=== PATIENT | female | born 1980 | race Caucasian/White ===

== ENCOUNTER 2018-10-02 16:09 | Emergency (ER) | payer OTHER ==
[~2018-10-02] VITALS: Ht 175.3 cm; Wt 104.3 kg
[2018-10-02 16:47] LABS: Basophils # (auto) 0.1 uL; Basophils % (auto) 0.7 % (0.0-2.0); Eosinophils # (auto) 0.2 uL; Lymphocytes # (auto) 2.5 uL; Monocytes # (auto) 0.7 uL; White Blood Cell 10.7 10^3/uL (4.4-10.8)
[2018-10-02 16:49] LABS: Eosinophils % (auto) 2.1 % (0.0-7.0); Hematocrit 38.6 % (36.0-46.0); Hemoglobin 12.5 g/dL (12.2-16.2); Lymphocytes % (auto) 23.1 % (10.0-50.0); Mean Corpuscular Hemoglobin 25.3 pg (28.0-32.0); Mean Corpuscular Hgb Conc. 32.5 g/dL (32.0-36.0); Mean Corpuscular Volume 77.7 fL (80.0-100.0); Monocytes % (auto) 6.6 % (0.0-12.0); Neutrophils # (auto) 7.3 uL; Neutrophils % (auto) 67.5 % (37.0-80.0); Platelet Count (auto) 369 10^3/uL (140-450); Red Blood Cells 4.96 10^6/uL (4.0-5.20); Red Cell Distribution Width 16.4 % (11.8-14.3)
[2018-10-02] MEDS ORDERED: SODIUM CHLORIDE 0.9% 1,000 ML IVB ONE (16:50)
[2018-10-02 16:54] LABS: Alanine Aminotransferase 20 U/L (13-56); Anion Gap 9 (5-15); Aspartate Aminotransferase 17 U/L (15-37); BUN/Creatinine Ratio 14.8; Blood Alcohol < 3.0 mg/dL (0-5); Blood Urea Nitrogen 16 mg/dL (7-18); Calcium 8.8 mg/dL (8.5-10.1); Carbon Dioxide 21 mmol/L (21-32); Chloride 115 mmol/L (98-107); GFR African American 73 mL/min; GFR Non-African American 60 mL/min; Glucose 97 mg/dL (74-106); Potassium 3.3 mmol/L (3.5-5.1); Sodium 145 mmol/L (136-145)
[2018-10-02 16:56] LABS: Alkaline Phosphatase 77 U/L (45-117); Bilirubin, Total 0.6 mg/dL (0.2-1.0); Total Protein 7.4 g/dL (6.4-8.2)
[2018-10-02 16:57] LABS: Acetaminophen < 2.0 ug/mL (10-30); Salicylate < 1.7 mg/dL (2.8-20.0)
[2018-10-02] MEDS ORDERED: POTASSIUM CHL 20 Meq TABLET PO ONE (19:15)
[2018-10-02 20:58] LABS: Urine Bacteria FEW /hpf (None Seen); Urine Blood Negative /uL (Negative); Urine Hyaline Cast FEW /lpf (0 - 2); Urine Specific Gravity 1.035 (1.001-1.035); Urine WBC 3 /hpf (0 - 5)
[2018-10-02 21:18] LABS: Alcohol, Urine < 3.0 mg/dL (0-5); Amphetamine Screen, Urine NEGATIVE (NEGATIVE); Barbiturate Scree,Urine NEGATIVE (NEGATIVE); Benzodiazephine Screen, Urine NEGATIVE (NEGATIVE); Cannabinoid Screen, Urine POSITIVE (NEGATIVE); Cocaine Screen, Urine NEGATIVE (NEGATIVE); Opiate Scree,Urine NEGATIVE (NEGATIVE); Phencyclidine Screen, Urine NEGATIVE (NEGATIVE)
[2018-10-03] MEDS ORDERED: ACETAMINOPHEN 325 MG TAB PO ONE (08:00)
[2018-10-03] MEDS: LORazepam 0.5 MG TAB PO PRN (09:42)
[2018-10-03] MEDS ORDERED: LORazepam 0.5 MG TAB PO ONE (10:00)
[2018-10-04] MEDS ORDERED: IBUPROFEN 800 MG TAB PO ONE
[2018-10-04] MEDS: LORazepam 0.5 MG TAB PO PRN (00:06)
--- NOTE | 2018-10-04 08:34 | NUR ---
Report from maintenance technician 2nd shift at 0700 stated that efforts for placement through the evening were not successful due to no beds being available. We will continue to help facilitate placement, if you receive any calls for transfer please alert us as we will do the same. Thank you and have a great day!!
[2018-10-04 18:20] VITALS: BP 159/99
== END 2018-10-04 18:34 | disposition short-term general hospital (02) ==
LOC: ER 16:12
DX: T42.6X2A Poisoning by other antiepileptic and sedative-hypnotic drugs, intentional self-harm, initial encounter (principal); T42.8X2A Poisoning by antiparkinsonism drugs and other central muscle-tone depressants, intentional self-harm, initial encounter; F32.9 Major depressive disorder, single episode, unspecified; F41.9 Anxiety disorder, unspecified; F12.10 Cannabis abuse, uncomplicated; Z59.0 Homelessness; Y92.89 Other specified places as the place of occurrence of the external cause
CPT/HCPCS: 36415; 71045; 80053; 80307; 80320; 80329; 81001; 81025; 84702; 85025; 93005; 94761; 99285; J7030